=== PATIENT | female | born 1955 | race Caucasian/White ===

== ENCOUNTER 2016-04-27 13:57 | Inpatient (IN) | payer BC ==
[~2016-04-27] VITALS: Ht 161.3 cm; Wt 64.9 kg
[2016-04-28] MEDS ORDERED: METR500T10 PO ×2 (11:58)
[2016-04-28] MEDS ORDERED: NEOM500 PO (11:58)
[2016-04-28 12:05] VITALS: BP 134/86; PULSE 57; RESP 16; TEMP 97.5; O2SAT 100
[2016-04-28] MEDS ORDERED: METOPROLOL TARTRATE 25 MG TAB PO PRN (12:15)
[2016-04-28] MEDS ORDERED: METRONIDAZOLE 500 MG/100 ML ISONTONIC SOLN IV SCH (12:15)
[2016-04-28] MEDS ORDERED: DEXT 5%-NACL 0.9% 1000 ML INJ 1,000 ML IV SCH (12:15)
[2016-04-28] MEDS ORDERED: INSULIN HUMAN REGULAR 1,000 UNITS/10 ML VIAL SQ PRN (12:15)
[2016-04-28] MEDS ORDERED: LACTATED RINGER'S 1000 ML IV SCH (12:15)
[2016-04-28] MEDS ORDERED: SODIUM CHLORID 0.9% 500 ML IV SCH (12:15)
[2016-04-28] MEDS ORDERED: ceFAZolin 2 GM PREMIX 50 ML IV SCH (12:15)
[2016-04-28] MEDS ORDERED: NEOSTIGMINE 3 MG/3 ML SYR IV ONE (12:20)
[2016-04-28] MEDS ORDERED: PROPOFOL 200 MG/20 ML AMP IV ONE (12:20)
[2016-04-28] MEDS ORDERED: NORMOSOL R INJ 1,000 ML IV ONE (12:21)
[2016-04-28] MEDS ORDERED: FAMOTIDINE 20 MG/2 ML VIAL ONE (15:07)
[2016-04-28] MEDS ORDERED: ACETAMINOPHEN 1000 MG/100 ML VIAL IV ONE (15:56)
[2016-04-28] MEDS ORDERED: MIDAZOLAM HCL 2 MG/2 ML VIAL ONE (15:56)
[2016-04-28] MEDS ORDERED: HYDROmorphone HCL PF 2 MG/ML VIAL ONE (15:57)
[2016-04-28] MEDS ORDERED: DEXAMETHASONE SOD PHOS 4 MG/ML VIAL ONE (15:57)
--- NOTE | 2016-04-28 16:23 | PD.OP ---
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 Patient elected to undergo robotic sigmoid resection by Dr. Paniagua and request for made for bilateral ureteral catheter insertion. Patient is brought to the operating room identified by myself as June Garcia. She is placed in a dorsal lithotomy position, prepped and draped in usual sterile fashion, received preprocedure antibiotics, and general endotracheal tube anesthesia was administered. 22 Turkmen cystoscope was inserted in the bladder moore cystoscopy did not reveal any abnormalities. 5 Turkmen open ended ureteral catheter was inserted into the left ureteral orifice without difficulty. This was then repeated on the right side. The Medel was inserted and the catheters then were attached the Medel. She tolerated the procedure well. Pascual Mejía DO Apr 28, 2016 16:23
[2016-04-28] MEDS ORDERED: fentaNYL CITRATE 250 MCG/5 ML AMP ONE (19:54)
[2016-04-28] MEDS: D5-NS + KCL 20 MEQ INJ 1,000 ML IV SCH (20:11)
[2016-04-28] MEDS ORDERED: Post-op Orders (for Pharmacy) MISC XX ONE (20:15)
[2016-04-28] MEDS ORDERED: ENALAPRILAT 2.5 MG/2 ML VIAL IV PRN (20:15)
[2016-04-28] MEDS ORDERED: ACETAMINOPHEN 325 MG TAB PO PRN (20:15)
[2016-04-28] MEDS ORDERED: ACETAMINOPHEN/HYDROcodone 325 MG/5 MG TAB PO PRN ×2 (20:15)
[2016-04-28] MEDS ORDERED: diphenhydrAMINE HCL 50 MG/ML VIAL IV PRN (20:15)
[2016-04-28] MEDS ORDERED: SODIUM CHLORIDE 0.9% FLUSH 5 ML FLUSH IVF PRN (20:15)
[2016-04-28] MEDS ORDERED: BENZOCAINE 6 MG/MENTHOL 10 MG LOZENGE SUCK-ON PRN (20:15)
[2016-04-28] MEDS ORDERED: ENALAPRILAT 1.25 MG/ML VIAL IV PRN (20:15)
[2016-04-28] MEDS ORDERED: POTASSIUM CHLOR 20 MEQ PREMIX 100 ML IV PRN (20:15)
[2016-04-28] MEDS ORDERED: NALOXONE HCL 0.4 MG/ML AMP IV PRN (20:15)
[2016-04-28] MEDS ORDERED: KETOROLAC TROMETHAMINE 30 MG/ML (IVP) VIAL IVP PRN (20:15)
[2016-04-28] MEDS ORDERED: POTASSIUM CHLOR 40 MEQ PREMIX 100 ML IV PRN (20:15)
[2016-04-28] MEDS ORDERED: MORPHINE SULFATE 30 MG/30 ML PCA IV SCH (20:15)
[2016-04-28] MEDS: SODIUM CHLORIDE 0.9% FLUSH 5 ML FLUSH IVF SCH (20:20)
[2016-04-28 21:00] LABS: BICARBONATE 22.5 MEQ/L (21.0-32.0); POTASSIUM 3.5 MEQ/L (3.5-5.1)
[2016-04-28 21:13] LABS: AUTOMATED NEUTROPHIL # 11.6 TH/MM3 (1.8-7.7); BASOPHIL % 0.2 % (0.0-2.0); EOSINOPHIL % 0.3 % (0.0-4.0); HEMATOCRIT 37.2 % (35.0-46.0); HEMO FLAGS DIFF FINAL; LYMPH % 7.5 % (9.0-44.0); MEAN CELL VOLUME 92.4 FL (80.0-100.0); MEAN CORPUSCULAR HEMOGLOBIN 30.8 PG (27.0-34.0); MEAN CORPUSCULAR HGB CONC 33.4 % (32.0-36.0); MONO % 2.2 % (0.0-8.0); NEUT % 89.8 % (16.0-70.0); PLATELET COUNT 251 TH/MM3 (150-450); RED BLOOD COUNT 4.02 MIL/MM3 (4.00-5.30); WHITE BLOOD COUNT 12.9 TH/MM3 (4.0-11.0)
[2016-04-28] MEDS: PCA - TOTAL MG MORPHINE DELIVERED PER SHIFT SCH (22:00)
[2016-04-28 23:00] VITALS: BP 113/62; PULSE 67; PULSE 73; RESP 18; TEMP 97.7; O2SAT 95
[2016-04-29] VITALS (28 sets, daily range): BP systolic 88–135; BP diastolic 50–67; PULSE 61–96; RESP 16–18; TEMP 98.5–99.4; O2SAT 94–98
[2016-04-29] MEDS: metroNIDAZOLE 500 MG INJ 100 ML IV SCH ×3 (00:20→15:35)
[2016-04-29] MEDS: ONDANSETRON HCL 4 MG/2 ML VIAL IV PRN ×2 (00:57→08:02)
[2016-04-29] MEDS: D5-NS + KCL 20 MEQ INJ 1,000 ML IV SCH ×3 (04:59→21:05)
[2016-04-29] MEDS: PCA - TOTAL MG MORPHINE DELIVERED PER SHIFT SCH ×3 (06:00→22:00)
[2016-04-29 06:05] LABS: AUTOMATED NEUTROPHIL # 8.6 TH/MM3 (1.8-7.7); BASOPHIL % 0.1 % (0.0-2.0); HEMATOCRIT 34.9 % (35.0-46.0); HEMO FLAGS DIFF FINAL; LYMPH % 4.5 % (9.0-44.0); LYMPHOCYTE # 0.4 TH/MM3 (1.0-4.8); MEAN CELL VOLUME 92.1 FL (80.0-100.0); MEAN CORPUSCULAR HGB CONC 33.7 % (32.0-36.0); MONO % 5.3 % (0.0-8.0); NEUT % 90.1 % (16.0-70.0); PLATELET COUNT 234 TH/MM3 (150-450); RED BLOOD COUNT 3.78 MIL/MM3 (4.00-5.30); RED CELL DISTRIBUTION WIDTH 12.8 % (11.6-17.2); WHITE BLOOD COUNT 9.5 TH/MM3 (4.0-11.0)
[2016-04-29 06:32] LABS: BICARBONATE 23.7 MEQ/L (21.0-32.0); POTASSIUM 3.8 MEQ/L (3.5-5.1)
[2016-04-29] MEDS: PANTOPRAZOLE SODIUM 40 MG VIAL IVP SCH (08:02)
[2016-04-29] MEDS: SODIUM CHLORIDE 0.9% FLUSH 5 ML FLUSH IVF SCH ×2 (09:00→21:00)
--- NOTE | 2016-04-29 11:14 | HHI.PR ---
Subjective Remarks C/R surg POD # 1 afebrile, VSS UO good c/o nausea Objective - Vital Signs Date Time Temp Pulse Resp B/P Pulse Ox O2 Delivery O2 Flow Rate FiO2 04/29/16 09:15 99.0 64 16 101/60 96 04/29/16 07:52 21 04/28/16 21:30 Nasal Cannula 3 Result Diagram: 04/29/16 0504/29/16 05 Other Results PE alert Abd - full, wounds clean, mild tympany A/P Assessment and Plan Imp: stab;le post-op OOB dcer IVF tx to floor Laron Chaves MD Apr 29, 2016 11:14
[2016-04-29] MEDS ORDERED: ACETAMINOPHEN 1000 MG/100 ML VIAL IV PRN (11:15)
--- NOTE | 2016-04-29 20:51 | MP ---
cc: DEISY PANIAGUA M.D., CHRISTOPHER DOSS, MD,MAHESH DATE OF SURGERY 04/28/16 PREOPERATIVE DIAGNOSIS Sigmoid colon cancer. POSTOPERATIVE DIAGNOSIS Sigmoid colon cancer. PROCEDURE 1. Robotic extensive lysis of adhesions. 2. Robotic low anterior resection. 3. Left salpingo-oophorectomy SURGEON Clem Paniagua MD INSECT CONTROL AIDE [facility] ANESTHESIA General per ET tube ESTIMATED BLOOD LOSS 50 mL OPERATIVE INDICATIONS The patient is a 61-year-old female who was recently noted to have a sigmoid colon cancer. PROCEDURE IN DETAIL The patient was brought to the operating room and placed in the supine position. After induction of general anesthesia, the skin of the anterior abdominal wall was prepped and draped in the usual sterile fashion. A site was then chosen for the camera, being located 2 cm above and to the right of the umbilicus. A 10- 12 trocar was placed at this site under direct vision, using a laparoscope. CO2 insufflation was then undertaken and a brief abdominal survey was performed. There was nothing noted that would preclude the robotic approach. The remainder of the trocars were placed as noted. #1 - 10-12 port was placed just inside the right anterior superior iliac spine. The assist port, a 5 port, was placed just under the right costal margin, in the right midclavicular line. The #3 port was placed on a line with the umbilicus in the left anterior axillary line, and the #2 port (after verifying that the patient had adequate length to preclude takedown of the splenic flexure) was placed just above the umbilical line in the left midclavicular line. The patient was hydroplaned with head down and to the right slightly, and the small bowel was brought up and out of the pelvis. There was noted to be adhesions of the small bowel to the sigmoid colon. The sigmoid colon was retracted down to the left and the peritoneum was opened. A window was then made and dissection continued posterior to the inferior mesenteric vessels over to the left sidewall. I was not really able to identify the left ureter at this point, so I elected to proceed with a lateral approach. At this point, the sigmoid colon was retracted to the right and the lateral peritoneal attachments were dissected free. There was noted to be a piece of what appeared to be scar tissue kind of adherent and tangled over the bowel. This was removed and sent with the specimen for pathology. Once we opened up that area of adhesions, the sigmoid colon was then noted to be quite redundant but not really terribly scarred in. The dissection continued in the lateral plane until the left ureter was identified and swept away from the specimen. At this point, the pelvis was evaluated and the patient was noted to have what appeared to be a left tube and ovary adherent down to the tumor, which had been attached. The tattooing showed up quite clearly as did the tumor. The inferior mesenteric vessels were then dissected free at their base and dissected free circumferentially, doubly clamped proximally, single clamped distally and divided. Dissection then continued in the posterior plane down to the level of the mid rectum. Dissection continued up around the right side and then the left side was carefully and slowly dissected free. There was quite a bit of adhesions from the tube and ovary to the right pelvic sidewall, but eventually we were able to free this up and kind of peel it off of the left ureter. The ovarian vasculature was then was cauterized in order to take the tube and ovary with the specimen. At this point, there appeared to be quite a bit of adherence of what appeared to be most likely the vagina to the anterior rectum, but it was not completely clear. A sponge stick was placed in the rectum, and the vagina was placed on gentle traction until I was eventually able to dissect the plane between the rectum and vagina free. The left pole of the vagina seemed to be somewhat adherent to the rectal mesentery, but I was eventually able to free it without too much trouble. At this point, we had dissected free circumferentially and straightened out the rectosigmoid colon, which allowed better visualization. A sponge stick was placed in the rectum and I was able to choose a site for division of the rectum, at approximately its mid portion where we were at least 3-4 cm to the distal edge of the tumor. The mesentery at this level was divided using the harmonic scalpel, and the [employer] stapler was placed across the bowel at this level. The stapler was closed, held for 30 seconds and fired. The 29 EEA stapler was then advanced through the anus and up to the rectal stump and lay nicely without a lot of extraneous tissue to clear off. At this point, we brought the bowel down and it came down nicely without undue tension for our planned anastomosis. However, because we had to had to peel the tissue off of the ureter I did have anesthesia give methylene blue and we watched until we had evidence of methylene blue in the Medel with no sign of any leakage noted. The robot was then undocked. An 8-10 cm incision was made in the suprapubic area. Using electrocautery, dissection was carried down to the fascia of the anterior abdominal wall. The anterior fascia was then split the length of the skin incision, and the medial fibers of the rectus abdominis muscle were then divided. The posterior fascia of peritoneum was then divided the length of the skin incision. A wound protector was then placed and the proximal stapled end of the bowel was grasped and pulled up and out through the incision. A site was then chosen for the proximal division of the bowel, where it came down nicely to the pubic tubercle. The mesentery at this level was divided and ligated using 0 Vicryl ties. A pursestring stapling device was placed across the bowel. The distal bowel was occluded with a Joseph clamp. The bowel was amputated and taken to a back table, where it was opened and the tumor was confirmed with a good 3-4 cm margin. This was then sent for pathology. The anvil from the 29 EEA stapler was then placed into the cut end of the bowel and the previously placed pursestring suture was then secured. This was then gently reduced back into the peritoneal cavity. The stapler was advanced through the anus and up to the rectal stump. The spike was advanced just anterior to the staple line, and the anvil was into the spike, being careful that the bowel was not twisted. The stapler was then closed, held for 30 seconds, fired and removed thus creating an enteroenterotomy. The anastomosis appeared pink and healthy circumferentially and both anastomotic rings appeared to be complete. A small amount of warm normal saline was placed into the pelvis. The proximal bowel was occluded with digital pressure. Air was insufflated into the rectum until gentle tension was noted on the anastomosis, with no sign of any leakage noted. The air was desufflated to the extent possible and the saline was suctioned out of the pelvis. The anastomosis lay in a nice orientation without tension. There had been some mild oozing in the pelvis due to all the lysis of adhesions and so a small amount of Judy was dusted throughout the pelvis to help with the areas of bleeding. The posterior fascia of the anterior abdominal wall at the suprapubic incision was closed in a running fashion using #1 PDS and the anterior fascia was closed in a running fashion using #1 PDS. A sponge was placed in the incision and OpSite was placed to cover the incision. CO2 insufflation was then resumed. The laparoscope was placed into the peritoneal cavity again. The 10/12 trocar sites, the one in the right lower quadrant and the camera site, were then closed using the crossbow closure device and 0 Vicryl suture. The air was desufflated from the peritoneal cavity and the sutures were secured. The wounds were copiously irrigated with warm normal saline and the skin at the suprapubic incision was closed in a running fashion using 3-0 Vicryl. The skin at the trocar sites were closed in interrupted subcuticular fashion using 3-0 Vicryl. The right ureteral stent was removed. Steri-Strips and sterile dressings were then applied. All sponge, needle and instrument counts were correct and the patient was returned to the post anesthesia care in stable condition. MD MIGUEL Acuna/ /8:13 PM /8:15 PM JOHNNY
[2016-04-29] MEDS: HEPARIN SODIUM - SQ 10,000 UNITS/ML VIAL SQ SCH (21:04)
[2016-04-30] VITALS (15 sets, daily range): BP systolic 119–149; BP diastolic 69–79; PULSE 69–96; RESP 16–20; TEMP 98.1–99.1; O2SAT 95–99
[2016-04-30] MEDS: D5-NS + KCL 20 MEQ INJ 1,000 ML IV SCH ×4 (00:26→17:16)
[2016-04-30 04:11] LABS: AUTOMATED NEUTROPHIL # 7.3 TH/MM3 (1.8-7.7); BASOPHIL % 0.3 % (0.0-2.0); EOSINOPHIL % 0.1 % (0.0-4.0); HEMATOCRIT 33.4 % (35.0-46.0); HEMO FLAGS DIFF FINAL; LYMPH % 14.2 % (9.0-44.0); LYMPHOCYTE # 1.3 TH/MM3 (1.0-4.8); MEAN CELL VOLUME 91.7 FL (80.0-100.0); MEAN CORPUSCULAR HEMOGLOBIN 31.3 PG (27.0-34.0); MEAN CORPUSCULAR HGB CONC 34.2 % (32.0-36.0); MONO % 8.4 % (0.0-8.0); PLATELET COUNT 233 TH/MM3 (150-450); RED BLOOD COUNT 3.64 MIL/MM3 (4.00-5.30); WHITE BLOOD COUNT 9.4 TH/MM3 (4.0-11.0)
[2016-04-30 04:30] LABS: BICARBONATE 22.7 MEQ/L (21.0-32.0); POTASSIUM 3.7 MEQ/L (3.5-5.1)
[2016-04-30] MEDS: PCA - TOTAL MG MORPHINE DELIVERED PER SHIFT SCH ×3 (06:00→22:00)
[2016-04-30] MEDS: HEPARIN SODIUM - SQ 10,000 UNITS/ML VIAL SQ SCH ×2 (06:24→20:18)
[2016-04-30] MEDS: PANTOPRAZOLE SODIUM 40 MG VIAL IVP SCH (08:12)
[2016-04-30] MEDS: SODIUM CHLORIDE 0.9% FLUSH 5 ML FLUSH IVF SCH ×2 (08:13→20:18)
--- NOTE | 2016-04-30 21:06 | HHI.PR ---
Subjective Remarks C/R surg POD # 2 afebrile, VSS UO good c/o nausea, improved Objective - Vital Signs Date Time Temp Pulse Resp B/P Pulse Ox O2 Delivery O2 Flow Rate FiO2 04/30/16 15:00 99.1 83 18 146/73 97 04/30/16 07:00 Room Air 04/29/16 07:52 21 04/28/16 21:30 3 Result Diagram: 04/30/16 0335 04/30/16 0335 Objective Remarks PE alert Abd - soft, wound dry, min tympany A/P Assessment and Plan Imp: OOB decr IVF adv Laron Ram MD Apr 30, 2016 21:06
[2016-05-01 03:30] VITALS: BP 114/70; PULSE 82; RESP 16; TEMP 98.5; O2SAT 96
[2016-05-01] MEDS: PCA - TOTAL MG MORPHINE DELIVERED PER SHIFT SCH (05:02)
[2016-05-01] MEDS: HEPARIN SODIUM - SQ 10,000 UNITS/ML VIAL SQ SCH (06:41)
[2016-05-01 07:00] VITALS: BP 115/70; PULSE 92; RESP 20; TEMP 98.1; O2SAT 96
[2016-05-01] MEDS: PANTOPRAZOLE SODIUM 40 MG VIAL IVP SCH (08:05)
[2016-05-01] MEDS: SODIUM CHLORIDE 0.9% FLUSH 5 ML FLUSH IVF SCH (08:06)
[2016-05-01] MEDS: D5-NS + KCL 20 MEQ INJ 1,000 ML IV SCH (08:06)
[2016-05-01 09:19] LABS: AUTOMATED NEUTROPHIL # 4.8 TH/MM3 (1.8-7.7); BASOPHIL % 0.5 % (0.0-2.0); EOSINOPHIL # 0.1 TH/MM3 (0-0.4); EOSINOPHIL % 0.9 % (0.0-4.0); HEMATOCRIT 34.8 % (35.0-46.0); HEMO FLAGS DIFF FINAL; LYMPH % 20.9 % (9.0-44.0); LYMPHOCYTE # 1.5 TH/MM3 (1.0-4.8); MEAN CELL VOLUME 91.2 FL (80.0-100.0); MEAN CORPUSCULAR HEMOGLOBIN 31.4 PG (27.0-34.0); MEAN CORPUSCULAR HGB CONC 34.4 % (32.0-36.0); MONO % 11.8 % (0.0-8.0); NEUT % 65.9 % (16.0-70.0); PLATELET COUNT 222 TH/MM3 (150-450); RED BLOOD COUNT 3.81 MIL/MM3 (4.00-5.30); RED CELL DISTRIBUTION WIDTH 12.8 % (11.6-17.2); WHITE BLOOD COUNT 7.3 TH/MM3 (4.0-11.0)
[2016-05-01 09:37] LABS: BICARBONATE 28.1 MEQ/L (21.0-32.0); POTASSIUM 3.8 MEQ/L (3.5-5.1)
--- NOTE | 2016-05-01 09:47 | HHI.PR ---
Subjective Remarks POD#3 s/p robotic LAR Comfortable, wants to go home Objective Vital Signs Date Time Temp Pulse Resp B/P Pulse Ox O2 Delivery O2 Flow Rate FiO2 05/01/16 07:00 98.1 92 20 115/70 96 05/01/16 03:30 98.5 82 16 114/70 96 04/30/16 23:31 98.3 81 119/69 95 04/30/16 19:15 98.6 83 20 133/73 99 04/30/16 15:00 99.1 83 18 146/73 97 04/30/16 11:00 99.0 76 18 149/79 98 04/30/16 10:00 73 I/O 04/30/16 04/30/16 04/30/16 05/01/16 05/01/16 05/01/16 07:00 15:00 23:00 07:00 15:00 23:00 Intake Total 1706 ml 720 ml 480 ml Output Total 2050 ml 1800 ml 1700 ml Balance -344 ml -1080 ml -1220 ml Intake Oral 480 ml 720 ml 480 ml IV Total 1226 ml Output Urine Total 2050 ml 1800 ml 1700 ml # Bowel Movements 0 0 1 Result Diagram: 05/01/16 0855 05/01/16 0855 Objective Remarks Abdomen soft, nondistended, tender Wounds clean Assessment and Plan Assessment and Plan Doing well Home today Followup 3 weeks Tawny Paniagua MD May 01, 2016 09:47
[2016-05-01] MEDS ORDERED: HYDR-3516 PO (09:49)
--- NOTE | 2016-05-01 13:25 | MD ---
cc: DEISY LEWIS M.D. ADMISSION DATE: 04/28/2016 DISCHARGE DATE: 05/01/2016 ADMISSION DIAGNOSIS Sigmoid colon cancer. DISCHARGE DIAGNOSIS Sigmoid colon cancer. PROCEDURE Robotic low anterior resection, with robotic lysis of adhesions. HOSPITAL COURSE The patient is a 61-year-old female who was recently noted to have a distal sigmoid colon cancer. She was admitted to the hospital on April 28, 2016 after an outpatient bowel prep. She was taken to the operating room where she underwent the above-named procedures. Postoperatively, she had rapid return of bowel and bladder function and she was discharged home on postoperative day #3 with instructions to follow-up with myself in the office. Final pathology was not available at the time of discharge. MD MIGUEL Acuna/BOB /9:53 AM /1:18 PM JOHNNY
== END 2016-05-01 10:41 | disposition home or self-care (01) | DRG 331 ==
LOC: HSDI 04-28 11:06 → HCPC 04-28 21:40
PROVIDERS: ADMIT Colon & Rectal Surgery; ATTEND Colon & Rectal Surgery
PROC: 0UT14ZZ Resection of Left Ovary, Percutaneous Endoscopic Approach (ICD-10-PCS; 2016-04-28)
PROC: 0JNC3ZZ Release Pelvic Region Subcutaneous Tissue and Fascia, Percutaneous Approach (ICD-10-PCS; 2016-04-28)
PROC: 8E0W4CZ Robotic Assisted Procedure of Trunk Region, Percutaneous Endoscopic Approach (ICD-10-PCS; 2016-04-28)
PROC: 0T788DZ Dilation of Bilateral Ureters with Intraluminal Device, Via Natural or Artificial Opening Endoscopic (ICD-10-PCS; 2016-04-28)
PROC: 0DTN4ZZ Resection of Sigmoid Colon, Percutaneous Endoscopic Approach (ICD-10-PCS; principal; 2016-04-28 16:02)
PROC: 0UT64ZZ Resection of Left Fallopian Tube, Percutaneous Endoscopic Approach (ICD-10-PCS; 2016-04-28 16:02)
DX: C18.7 Malignant neoplasm of sigmoid colon (principal); N73.6 Female pelvic peritoneal adhesions (postinfective)
CPT/HCPCS: 80048; 85025; 86850; 86900; 86901; 88305; 88309; 94150; C9113; J0131; J0690; J1100; J1170; J1644; J1885; J2250; J2270; J2405; J2710; J3010; J3480